=== PATIENT | female | born 1940 | race American Indian/Alaskan Native ===

== ENCOUNTER 2018-04-26 11:31 | Outpatient (CLI) | payer OTHER ==
[~2018-04-26 11:31] MED LIST: ATENOLOL100 MG; AVAPRO300 MG; LIPITOR40 MG; SYNTHROID100 MCG; ZETIA10 MG
== END 2018-04-26 11:34 | disposition home or self-care (01) ==
LOC: SONOGRAMA 11:31
DX: K76.0 Fatty (change of) liver, not elsewhere classified (principal)

== ENCOUNTER 2018-06-14 13:14 | Emergency (ER) | payer OTHER ==
[~2018-06-14] VITALS: Ht 152.4 cm; Wt 61.7 kg
== END 2018-06-15 12:16 | disposition home or self-care (01) ==
LOC: ER 13:14
DX: J20.9 Acute bronchitis, unspecified (principal); J11.1 Influenza due to unidentified influenza virus with other respiratory manifestations

== ENCOUNTER 2019-09-05 09:34 | Outpatient (CLI) | payer OTHER | END 2019-09-05 10:50 | disposition home or self-care (01) | LOC: SONOGRAMA 09:34 | DX: I10 Essential (primary) hypertension (principal) ==

== ENCOUNTER 2019-09-11 13:55 | Outpatient (CLI) | payer OTHER | END 2019-09-11 14:36 | disposition home or self-care (01) | LOC: TOM 13:55 | DX: J10.1 Influenza due to other identified influenza virus with other respiratory manifestations (principal); A49.3 Mycoplasma infection, unspecified site ==

== ENCOUNTER → 2020-12-01 | Outpatient (CLI) | payer OTHER | END | disposition home or self-care (01) | LOC: RAD 10:15 | PROVIDERS: ATTEND Surgery Surgery of the Hand | DX: G56.03 Carpal tunnel syndrome, bilateral upper limbs (principal); M65.4 Radial styloid tenosynovitis [de Quervain]; M54.2 Cervicalgia ==